=== PATIENT | male | born 1950 | race Hispanic/Latino ===

== ENCOUNTER → 2025-05-29 | Day surgery (SDC) | payer MEDICARE ==
[2025-05-22 11:50] LABS: BASOPHILS % 0.1 % (0.0-1.0); EOSINOPHILS % 0.9 % (0.0-6.0); LYMPHOCYTES % 8.8 % (18.0-39.1); MONOCYTES % 11.4 % (4.4-11.3); NEUTROPHILS % 78.6 % (38.7-80.0); RED CELL DISTRIBUTION WIDTH 13.3 % (11.7-14.4)
[~2025-05-29] MED LIST: AMLODIPINE-BEN1 EAC5; ASPIRIN CHEW81 MG PO; CIALIS5 MG; COREG12.5 MG PO; DOXYCYCLINE HY100 MG PO; GLUCOSAMINE &1 EACH; JARDIANCE10 MG; ONE DAILY WITH1 EACH; PRESERVISION A1 EAC3; PROPOFOL IV EMULSION 10 MG/ML 20 ML VIAL ONE; PROTONIX20 MG PO; ROSUVASTATIN CA10 MG
[2025-05-29] MEDS: LACTATED RINGER'S 1,000 ML ONE (08:54)
[2025-05-29 10:30] VITALS: TEMP 98.9
[2025-05-29 11:00] VITALS: BP 145/95; PULSE 67; RESP 16; O2SAT 100
== END | disposition home or self-care (01) ==
LOC: OR 06:10
PROVIDERS: ATTEND Internal Medicine Gastroenterology
DX: Z09 Encounter for follow-up examination after completed treatment for conditions other than malignant neoplasm (principal); K57.30 Diverticulosis of large intestine without perforation or abscess without bleeding; K64.1 Second degree hemorrhoids; K21.9 Gastro-esophageal reflux disease without esophagitis; I10 Essential (primary) hypertension; N28.9 Disorder of kidney and ureter, unspecified; D64.9 Anemia, unspecified; G47.30 Sleep apnea, unspecified; M19.90 Unspecified osteoarthritis, unspecified site; Z86.0100 Personal history of colon polyps, unspecified; Z01.810 Encounter for preprocedural cardiovascular examination; Z01.812 Encounter for preprocedural laboratory examination; Z87.891 Personal history of nicotine dependence; Z68.33 Body mass index [BMI] 33.0-33.9, adult
CPT/HCPCS: 36415; 45378; 85025; 88305; 93005; J2704; J7121; 45380